=== PATIENT | female | born 1980 ===

== ENCOUNTER 2018-08-11 18:24 | Emergency (ER) | payer SELFPAY ==
[2018-08-11 18:39] VITALS: RESP 16; TEMP 98.8
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
[2018-08-11 19:29] VITALS: BP 114/75; PULSE 80
[2018-08-11 20:28] VITALS: O2SAT 99
== END 2018-08-11 19:28 | disposition home or self-care (01) ==
LOC: C.ER 18:24
DX: Z04.1 Encounter for examination and observation following transport accident (principal)